=== PATIENT | female | born 1985 | race Caucasian/White ===

== ENCOUNTER 2017-12-29 18:19 | Emergency (ER) | payer SELFPAY ==
[2017-12-29 18:38] VITALS: TEMP 98.7
--- NOTE | 2017-12-29 18:48 | ED.PDOC ---
History of Present Illness - General Chief Complaint: ENT Problem Stated Complaint: sore throat Time Seen by Provider: 12/29/17 18:45 Source: patient, RN notes reviewed, Vital Signs reviewed Exam Limitations: no limitations - History of Present Illness Timing/Duration: gradual Severity: moderate EENT Location: mouth, throat Improving Factors: nothing Worsening Factors: nothing Associated Symptoms: sinus infection, sore throat Allergies/Adverse Reactions: Allergies Hydrocodone Adverse Reaction (Mild, Verified 12/29/17 18:39) itchy Home Medications: Ambulatory Orders Amoxicillin [Amoxil] 1,000 mg PO BID #40 cap 12/29/17 Ketorolac Tromethamine [Toradol Tabs] 10 mg PO Q6H PRN #20 tab 12/29/17 Review of Systems - Review of Systems Constitutional: States: fever EENTM: States: nose pain, throat pain Respiratory: States: no symptoms reported Cardiology: States: no symptoms reported Gastrointestinal/Abdominal: States: no symptoms reported Genitourinary: States: no symptoms reported Musculoskeletal: States: no symptoms reported Skin: States: no symptoms reported Neurological: States: no symptoms reported Endocrine: States: no symptoms reported Past Medical History (General) - Patient Medical History Hx Seizures: No Hx Stroke: No Hx Dementia: No Hx Asthma: No Hx of COPD: No Hx Cardiac Disorders: No Hx Congestive Heart Failure: No Hx Pacemaker: No Hx Hypertension: No Hx Thyroid Disease: No Hx Diabetes: No Hx Gastroesophageal Reflux: No Hx Renal Disease: No Hx of HIV: No Hx MRSA: No Surgical History: other - Vaccination History Hx Tetanus, Diphtheria Vaccination: Yes Hx Influenza Vaccination: No Hx Pneumococcal Vaccination: No - Social History Hx Tobacco Use: Yes Hx Alcohol Use: Yes - at least two bears a day - Triage Comment ED Triage Comment: Pt has mask on. Pt is having a hard time communicating d/t pain in throat Family Medical History - Family History Mother Hx Family Hypertension: Yes Hx Cardiac Disease: Yes Physical Exam - Physical Exam General Appearance: Alert, Well Developed, Well Groomed, Well Hydrated, Well Nourished Eye Exam: bilateral normal Ear Exam: bilateral ear: TM normal Nasal Exam: discharge, sinus tenderness Throat Exam: normal mouth inspection, pharynx tenderness, other - erythema Neck: non-tender, full range of motion, supple, lymphadenopathy (R), lymphadenopathy (L) Cardiovascular/Respiratory: regular rate, rhythm, no M/R/G, normal peripheral pulses, no JVD, normal breath sounds, no respiratory distress Abdominal Exam: non-tender, no organomegaly Neurologic: no motor/sensory deficits, alert Skin Exam: normal color, warm/dry Departure - Departure Clinical Impression: Streptococcal sore throat Time of Disposition: 18:45 Disposition: Discharge to Home or Self Care Condition: Good Departure Forms: ED Discharge - Pt. Copy, Patient Portal Self Enrollment Instructions: DI for Ear Pain-Adult Diet: full liquid diet Activity: increase activity as tolerated Prescriptions: Amoxicillin [Amoxil] 1,000 mg PO BID #40 cap Ketorolac Tromethamine [Toradol Tabs] 10 mg PO Q6H PRN #20 tab PRN Reason: Pain Home Medications: Ambulatory Orders Amoxicillin [Amoxil] 1,000 mg PO BID #40 cap 12/29/17 Ketorolac Tromethamine [Toradol Tabs] 10 mg PO Q6H PRN #20 tab 12/29/17
[2017-12-29] MEDS: LIDOCAINE HCL 2% (MOUTH-THROAT) 15 ML UD MT ONE (18:53)
[2017-12-29] MEDS: IBUPROFEN 200 MG TAB PO ONE (18:53)
[2017-12-29 19:13] VITALS: BP 129/85; O2SAT 98
== END 2017-12-29 19:05 | disposition home or self-care (01) ==
LOC: ER 18:19
DX: J02.0 Streptococcal pharyngitis (principal); Z88.5 Allergy status to narcotic agent; Z87.891 Personal history of nicotine dependence

== ENCOUNTER 2018-09-21 10:16 | Emergency (ER) | payer SELFPAY ==
--- NOTE | 2018-09-21 10:33 | ED.PDOC ---
History of Present Illness - General Chief Complaint: GI Problem Stated Complaint: nausea/vomiting Time Seen by Provider: 09/21/18 10:21 Information Source: patient Exam Limitations: no limitations - History of Present Illness Initial Comments: Becky Moise 33 y/o female came to ER with nausea/vomiting for the last 2 days about 15 times;no diarrhea but with soft stools yesterday;no fever/chills dysuria or hematemesis.Denies heavy alcohol consumption recently.No abdominal pains. Abdominal Pain Onset Location: other - NONE Pain Radiation: no radiation Quality: moderate Timing/Duration: days - 2 Improving Factors: nothing Worsening Factors: eating Associated Symptoms: denies symptoms, other - see hpi Review of Systems - Review of Systems Constitutional: States: no symptoms reported EENTM: States: no symptoms reported Respiratory: States: no symptoms reported Cardiology: States: no symptoms reported Gastrointestinal/Abdominal: States: see HPI, vomiting Genitourinary: States: no symptoms reported Musculoskeletal: States: no symptoms reported Skin: States: no symptoms reported All other Systems: Reviewed and Negative, No Change from Baseline Past Medical History (General) - Patient Medical History Hx Seizures: No Hx Stroke: No Hx Dementia: No Hx Asthma: No Hx of COPD: No Hx Cardiac Disorders: No Hx Congestive Heart Failure: No Hx Pacemaker: No Hx Hypertension: No Hx Thyroid Disease: No Hx Diabetes: No Hx Gastroesophageal Reflux: No Hx Renal Disease: No Hx of HIV: No Hx MRSA: No Surgical History: other - - Vaccination History Hx Tetanus, Diphtheria Vaccination: Yes Hx Influenza Vaccination: No Hx Pneumococcal Vaccination: No - Social History Hx Tobacco Use: Yes Hx Alcohol Use: Yes - Female History Patient is a Female of Child Bearing Age (10 -59 yrs old): Yes Patient : No Family Medical History - Family History Mother Hx Family Hypertension: Yes Hx Cardiac Disease: Yes Hx Family Cancer: Yes - mom/sister:ovarian Physical Exam - Physical Exam General Appearance: Alert, Comfortable, No apparent distress Eyes, Ears, Nose, Throat Exam: PERRL/EOMI, normal ENT inspection, pharynx normal Neck: non-tender, full range of motion, supple, normal inspection Respiratory: chest non-tender, lungs clear, normal breath sounds Cardiovascular/Chest: normal peripheral pulses, regular rate, rhythm, no murmur Peripheral Pulses: No deficit Gastrointestinal/Abdominal: normal bowel sounds, non tender, soft, no organomegaly Rectal Exam: normal exam Back Exam: normal inspection, no CVA tenderness, no vertebral tenderness Extremity: no pedal edema, no calf tenderness Neurologic: alert, oriented x 3 Skin Exam: normal color, warm/dry Progress - Progress Progress: 09/21/18 10:41 Vital Signs - 24 hr 09/21/18 10:23 Temperature 98.6 F Pulse Rate [ 62 Left Radial] Respiratory 18 Rate Blood Pressure 103/72 [Right Arm] O2 Sat by Pulse 98 Oximetry - Results/Orders Results/Orders: 09/21/18 10:34 IV Care:Saline Lock per Protoc QSHIFT Laboratory Results - last 24 hr 09/21/18 09/21/18 09/21/18 10:56 10:56 10:56 WBC 10.9 H RBC 5.17 Hgb 16.4 H Hct 48.8 H MCV 94.3 MCH 31.6 H MCHC 33.6 RDW 14.0 Plt Count 317 MPV 8.1 Absolute Neuts (auto) 8.50 H Absolute Lymphs (auto) 1.70 Absolute Monos (auto) 0.50 Absolute Eos (auto) 0.20 Absolute Basos (auto) 0.00 Neutrophils % 78.1 H Lymphocytes % 15.6 L Monocytes % 4.3 Eosinophils % 1.7 Basophils % 0.3 Sodium 139 Potassium 3.9 Chloride 100 L Carbon Dioxide 24 Anion Gap 18.9 H BUN 16 Creatinine 0.85 BUN/Creatinine Ratio 18.8 Random Glucose 71 Serum Osmolality 277.2 Calcium 9.7 Total Bilirubin 0.9 AST 25 ALT 15 Alkaline Phosphatase 50 Serum Total Protein 8.7 H Albumin 4.8 Globulin 3.9 H Albumin/Globulin Ratio 1.2 Lipase 22 Serum HCG, Qual Negative Urine Color Urine Appearance Urine pH Ur Specific [place] Urine Protein Urine Glucose (UA) Urine Ketones Urine Blood Urine Nitrite Urine Bilirubin Urine Urobilinogen Ur Leukocyte Esterase Urine RBC Urine WBC Ur Epithelial Cells Amorphous Sediment Urine Bacteria Urine Mucus 09/21/18 11:15 WBC RBC Hgb Hct MCV MCH MCHC RDW Plt Count MPV Absolute Neuts (auto) Absolute Lymphs (auto) Absolute Monos (auto) Absolute Eos (auto) Absolute Basos (auto) Neutrophils % Lymphocytes % Monocytes % Eosinophils % Basophils % Sodium Potassium Chloride Carbon Dioxide Anion Gap BUN Creatinine BUN/Creatinine Ratio Random Glucose Serum Osmolality Calcium Total Bilirubin AST ALT Alkaline Phosphatase Serum Total Protein Albumin Globulin Albumin/Globulin Ratio Lipase Serum HCG, Qual Urine Color Dk yellow H Urine Appearance Sl cloudy Urine pH 5.5 Ur Specific [place] >= 1.030 Urine Protein 30 Urine Glucose (UA) Negative Urine Ketones 80 H Urine Blood Negative Urine Nitrite Negative Urine Bilirubin Small H Urine Urobilinogen 0.2 Ur Leukocyte Esterase Negative Urine RBC 0-1 Urine WBC 0-1 Ur Epithelial Cells 20-30 Amorphous Sediment 1+ Urine Bacteria 1+ Urine Mucus Moderate Discuss all test result with patient - EKG/XRAY/CT XRAY: chest - and abdomen-no acute abnormalities noted Departure - Departure Clinical Impression: Nausea & vomiting Qualifiers: Vomiting type: unspecified Vomiting Intractability: non-intractable Qualified Code(s): R11.2 - Nausea with vomiting, unspecified Time of Disposition: 13:27 Disposition: Discharge to Home or Self Care Condition: Fair Departure Forms: ED Discharge - Pt. Copy, Patient Portal Self Enrollment Instructions: DI for Gastritis Diet: other - avoid greasy spicy foods until better Prescriptions: Ondansetron Odt [Zofran ODT] 8 mg PO Q8HRS PRN #7 tab PRN Reason: Nausea/Vomiting Home Medications: Ambulatory Orders Ondansetron Odt [Zofran ODT] 8 mg PO Q8HRS PRN #7 tab 09/21/18 Additional Instructions: Need to take over the counter medications B-complex vitamins one tablet daily;Magnesium oxide-400 mg daily;Ranitidine(Zantac)75 mg 2 tablets am/pm for 4 weeks;Return to Emergency room as needed
[2018-09-21] MEDS: LACTATED RINGERS 1,000 ML IVS ONE (11:12)
[2018-09-21] MEDS: PROCHLORPERAZINE INJ 10 MG/2 ML VIAL IV ONE (11:12)
--- NOTE | 2018-09-21 11:14 | RAD ---
1 radiographic chest. 3 Radiographs of the Abdomen. Indication: nausea/vomiting Comparison: None. Impression: Heart size normal. Lungs clear. No free air. Bowel gas pattern nonspecific. No abnormal calcifications. No acute osseous abnormality. Electronically signed by: Renard Almazan MD 09/21/2018 11:12 AM CDT
[2018-09-21 11:34] VITALS: O2SAT 99
[2018-09-21] MEDS ORDERED: raNITIdine HCL INJ 25 MG/ML VIAL ONE (11:37)
[2018-09-21] MEDS ORDERED: SODIUM CHLORIDE 0.9% 50ML 50 ML ONE (11:37)
[2018-09-21] MEDS: PANTOPRAZOLE INJECTION 80 MG in SODIUM CHLORIDE 0.9% 100ML 80 ML IVPB ONE (11:38)
[2018-09-21] MEDS: raNITIdine HCL INJ 50 MG in SODIUM CHLORIDE 0.9% 50ML 50 ML IVPB ONE (11:42)
[2018-09-21] MEDS ORDERED: SODIUM CHLORIDE 0.9% 500ML 500 ML IVS ONE (12:38)
[2018-09-21 14:16] VITALS: BP 95/53; TEMP 98
== END 2018-09-21 13:50 | disposition home or self-care (01) ==
LOC: ER 10:16
DX: R11.2 Nausea with vomiting, unspecified (principal); Z87.891 Personal history of nicotine dependence
CPT/HCPCS: 71045; 74019; 80053; 81001; 83690; 84703; 85025; A4216; J0780; J2780; J7120

== ENCOUNTER 2019-01-24 08:12 | Emergency (ER) | payer SELFPAY ==
[2019-01-24 08:23] VITALS: TEMP 98.1
[2019-01-24] MEDS ORDERED: ONDANSETRON ODT 8 MG TAB SL ONE (08:32)
[2019-01-24] MEDS ORDERED: SUCRALFATE 1 GM/10 ML 1 GM UD PO ONE (08:33)
[2019-01-24] MEDS ORDERED: ALUMINUM & MAGNESIUM HYDROXIDE 30 ML UD PO ONE (08:33)
[2019-01-24] MEDS ORDERED: PANTOPRAZOLE SODIUM TAB 40 MG PO ONE (08:33)
--- NOTE | 2019-01-24 09:29 | ED.PDOC ---
History of Present Illness - General Chief Complaint: GI Problem Stated Complaint: n/v/d Time Seen by Provider: 01/24/19 08:32 Source: patient Exam Limitations: no limitations - History of Present Illness Initial Comments: the patient is a 33-year-old female presenting to the emergency room secondary to nausea and vomiting and diarrhea for the last 48 hours. No blood and no bile. She has been tolerating liquids for the last 24 hours fairly well. No point abdominal pain. No fever. No urinary symptoms. No history of any pancreatitis. No history of any gallbladder or appendix issues in the past. There are multiple members in the community with similar symptoms. The patient does have a mild cough. She is a long-term smoker. No definite history of asthma. Timing/Duration: other - 2-3 days Severity: moderate Improving Factors: nothing Worsening Factors: eating Associated Symptoms: loss of appetite, malaise, nausea/vomiting Allergies/Adverse Reactions: Allergies Hydrocodone Adverse Reaction (Mild, Verified 09/21/18 10:34) Causes itching Home Medications: Ambulatory Orders Albuterol Inhaler [Ventolin Hfa Inhaler] 2 puff INH Q4H PRN #1 inh 01/24/19 Azithromycin 500 mg PO DAILY #4 tab 01/24/19 NK 01/24/19 Ondansetron Odt [Zofran ODT] 4 mg PO Q8HR PRN #5 tab 01/24/19 Sucralfate Tab [Carafate Tab] 1 gm PO QID #30 tab 01/24/19 Review of Systems - Review of Systems Constitutional: States: malaise EENTM: States: no symptoms reported Respiratory: States: cough Cardiology: States: no symptoms reported Gastrointestinal/Abdominal: States: no symptoms reported, diarrhea, nausea, vomiting Genitourinary: States: no symptoms reported Musculoskeletal: States: no symptoms reported Skin: States: no symptoms reported Neurological: States: no symptoms reported Endocrine: States: no symptoms reported All other Systems: No Change from Baseline Past Medical History (General) - Patient Medical History Hx Seizures: No Hx Stroke: No Hx Dementia: No Hx Asthma: No Hx of COPD: No Hx Cardiac Disorders: No Hx Congestive Heart Failure: No Hx Pacemaker: No Hx Hypertension: No Hx Thyroid Disease: No Hx Diabetes: No Hx Gastroesophageal Reflux: No Hx Renal Disease: No Hx of HIV: No Hx MRSA: No Surgical History: other - Vaccination History Hx Tetanus, Diphtheria Vaccination: Yes Hx Influenza Vaccination: No Hx Pneumococcal Vaccination: No - Social History Hx Tobacco Use: Yes Hx Alcohol Use: Yes - Female History Patient : No Family Medical History - Family History Mother Family History: No Known Hx Family Hypertension: Yes Hx Cardiac Disease: Yes Hx Family Cancer: Yes - mom/sister:ovarian Physical Exam - Physical Exam General Appearance: Alert, Comfortable, No apparent distress Eye Exam: bilateral normal Ears, Nose, Throat: hearing grossly normal, normal ENT inspection Neck: full range of motion, supple Respiratory: no respiratory distress, no accessory muscle use, rhonchi, wheezing Cardiovascular/Chest: normal peripheral pulses, regular rate, rhythm, no edema Peripheral Pulses: radial,right: 2+, radial,left: 2+ Gastrointestinal/Abdominal: non tender, soft Rectal Exam: deferred Back Exam: no CVA tenderness, no vertebral tenderness Extremity: non-tender, normal inspection, no pedal edema, normal capillary refill Neurologic: learning design specialist II-XII nml as tested, alert, normal mood/affect, oriented x 3 Skin Exam: normal color Comments: Vital Signs - 24 hr 01/24/19 01/24/19 08:20 09:00 Temperature 98.1 F Pulse Rate [ 74 58 L left brachial] Respiratory 16 20 Rate Blood Pressure 101/69 101/57 [left brachial] O2 Sat by Pulse 99 97 Oximetry Progress - Progress Progress: 01/24/19 09:30 the patient is a 33-year-old female presenting to the emergency room secondary to 2 days of nausea and vomiting and diarrhea. There is no definite point abdominal pain. This appears to be a gastroenteritis. She appears to have mild dehydration. She has tolerated stomach medications well and is tolerating liquids currently. She needs to maintain a bland diet for the next 3 days and increase water intake. She'll be written for Zofran for as needed use to control any nausea or vomiting. She'll be written for Carafate to take for the next week to help reduce any gastritis issues. She'll also be written for azithromycin to take for 5 days for the bronchitis that she appears to have going on. I'm uncertain if this is an acute bronchitis or if this is long- standing due to smoking. This antibiotic should also cover for a bacterial gastroenteritis if this is indeed not viral. I'm also going to write her for an albuterol inhaler to use on a trial basis for any shortness of breath that she might have. She does have some scattered wheezes and may have a mild reactive airway component. She needs to follow back up with her primary care doctor early next week. ER warnings were given for any worsening or failure to improve. If she did worsen, then additional workup and treatment would certainly be warranted. pina moy [id number] - Results/Orders Results/Orders: Laboratory Tests 01/24/19 01/24/19 08:30 08:30 Urine Color Yellow Urine Appearance Sl cloudy Urine pH 5.5 Ur Specific [place] >= 1.030 Urine Protein Trace Urine Glucose (UA) Negative Urine Ketones Negative Urine Blood Negative Urine Nitrite Negative Urine Bilirubin Negative Urine Urobilinogen 0.2 Ur Leukocyte Esterase Negative Urine RBC 0-1 Urine WBC 0-1 Ur Epithelial Cells 5-10 Urine Bacteria 1+ Urine Mucus Small Urine HCG, Qual Negative Departure - Departure Clinical Impression: Bronchitis, Gastroenteritis Disposition: Discharge to Home or Self Care Condition: Fair Departure Forms: ED Discharge - Pt. Copy, Patient Portal Self Enrollment Instructions: DI for Diarrhea and Traveler's Diarrhea -- Adult, Acute Bronchitis Diet: bland diet Activity: increase activity as tolerated Prescriptions: Ondansetron Odt [Zofran ODT] 4 mg PO Q8HR PRN #5 tab PRN Reason: Nausea--Moderate Albuterol Inhaler [Ventolin Hfa Inhaler] 2 puff INH Q4H PRN #1 inh PRN Reason: Shortness Of Breath Azithromycin 500 mg PO DAILY #4 tab Sucralfate Tab [Carafate Tab] 1 gm PO QID #30 tab Home Medications: Ambulatory Orders Albuterol Inhaler [Ventolin Hfa Inhaler] 2 puff INH Q4H PRN #1 inh 01/24/19 Azithromycin 500 mg PO DAILY #4 tab 01/24/19 NK 01/24/19 Ondansetron Odt [Zofran ODT] 4 mg PO Q8HR PRN #5 tab 01/24/19 Sucralfate Tab [Carafate Tab] 1 gm PO QID #30 tab 01/24/19 Additional Instructions: the patient is a 33-year-old female presenting to the emergency room secondary to 2 days of nausea and vomiting and diarrhea. There is no definite point abdominal pain. This appears to be a gastroenteritis. She appears to have mild dehydration. She has tolerated stomach medications well and is tolerating liquids currently. She needs to maintain a bland diet for the next 3 days and increase water intake. She'll be written for Zofran for as needed use to control any nausea or vomiting. She'll be written for Carafate to take for the next week to help reduce any gastritis issues. She'll also be written for azithromycin to take for 5 days for the bronchitis that she appears to have going on. I'm uncertain if this is an acute bronchitis or if this is long- standing due to smoking. This antibiotic should also cover for a bacterial gastroenteritis if this is indeed not viral. I'm also going to write her for an albuterol inhaler to use on a trial basis for any shortness of breath that she might have. She does have some scattered wheezes and may have a mild reactive airway component. She needs to follow back up with her primary care doctor early next week. ER warnings were given for any worsening or failure to improve. If she did worsen, then additional workup and treatment would certainly be warranted.
[2019-01-24] MEDS ORDERED: AZITHROMYCIN 250 MG TAB PO ONE (09:34)
[2019-01-24 10:13] VITALS: BP 95/60; O2SAT 99
== END 2019-01-24 10:00 | disposition home or self-care (01) ==
LOC: ER 08:12
DX: K52.9 Noninfective gastroenteritis and colitis, unspecified (principal); J40 Bronchitis, not specified as acute or chronic; F17.200 Nicotine dependence, unspecified, uncomplicated; Z88.5 Allergy status to narcotic agent
CPT/HCPCS: 81001; 81025; Q0144

== ENCOUNTER 2019-02-02 07:32 | Emergency (ER) | payer SELFPAY ==
[2019-02-02 07:59] VITALS: TEMP 98.1; O2SAT 99
[2019-02-02] MEDS ORDERED: KETOROLAC TROMETHAMINE INJ 30 MG/ML VIAL IM ONE (08:03)
--- NOTE | 2019-02-02 08:07 | ED.PDOC ---
History of Present Illness - General Chief Complaint: Upper Extremity Injury Stated Complaint: right elbow pain after falling out of bed Time Seen by Provider: 02/02/19 08:03 Source: patient - History of Present Illness Initial Comments: 33 yo female who presents with cc of right elbow pain following injury at 1 am today at home. Reports she accidentally rolled out of right side of bed and struck the back side of the right elbow against the dresser. Reports constant, 10/10, sharp pain to back of right elbow which radiates down the forearm, worse with extension and flexion past 90 degrees, worse with pronation/supination, worse with palpation, no swelling/redness/deformity, no meds tried for relief. Reports hx of right elbow dislocation in 2016. Allergies/Adverse Reactions: Allergies Hydrocodone Adverse Reaction (Mild, Verified 02/02/19 07:59) Causes itching Home Medications: Ambulatory Orders NK 01/24/19 Review of Systems - Review of Systems Review of Systems: 02/02/19 08:06 As per HPI. All others negative. Past Medical History (General) - Patient Medical History Hx Seizures: No Hx Stroke: No Hx Dementia: No Hx Asthma: No Hx of COPD: No Hx Cardiac Disorders: No Hx Congestive Heart Failure: No Hx Pacemaker: No Hx Hypertension: No Hx Thyroid Disease: No Hx Diabetes: No Hx Gastroesophageal Reflux: No Hx Renal Disease: No Hx Cancer: No Hx of HIV: No Hx Hepatitis C: No Hx MRSA: No - Vaccination History Hx Tetanus, Diphtheria Vaccination: No Hx Influenza Vaccination: No Hx Pneumococcal Vaccination: No Immunizations Up to Date: No - Social History Hx Tobacco Use: Yes Hx Alcohol Use: No Hx Substance Use: No Hx Substance Use Treatment: No Hx Depression: No - Female History Patient is a Female of Child Bearing Age (10 -59 yrs old): Yes Patient : No Family Medical History - Family History Mother Family History: No Known Hx Family Hypertension: Yes Hx Cardiac Disease: Yes Hx Family Cancer: Yes - mom/sister:ovarian Physical Exam - Physical Exam General Appearance: Alert, Comfortable, No apparent distress Eyes, Ears, Nose, Throat Exam: PERRL/EOMI, normal ENT inspection Neck: non-tender, full range of motion, supple, normal inspection Cardiovascular/Respiratory: regular rate, rhythm, no M/R/G, normal peripheral pulses, no JVD Abdominal Exam: non-tender, no organomegaly Back Exam: normal inspection, no CVA tenderness, no vertebral tenderness Shoulder Exam: normal inspection, non-tender, no evidence of injury, normal ROM Elbow/Forearm Exam: normal inspection, bone tenderness - posterior and lateral, limited ROM - Limited to between 15 to 90 degrees flexion, pain Wrist Exam: normal inspection, non-tender, no evidence of injury, normal ROM Hand Exam: normal inspection, non-tender Neuro/Tendon: normal sensation, normal motor functions Mental Status: alert, oriented x 3 Skin Exam: normal color, warm/dry Progress - Progress Progress: 02/02/19 08:09 Right elbow pain -consider fracture vs contusion most likely. Consider also strain/sprain vs dislocation vs other. -obtain XR R elbow, apply cold pack, Toradol 30 mg IM for pain control 02/02/19 08:38 -XR R elbow shows no acute fractures. Pt reports pain and ROM much improved following trx. Will place in sling for comfort, advised continued immobilization if pain and poor ROM continues and repeat XR in 5-7 days. If pain and ROM markedly improves over next few days, may dc sling and resume normal activity as tolerated. -dc home in good condition, home treatment discussed. Gaurav Booth MD Billing #[id number] - EKG/XRAY/CT XRAY: elbow - Right Xray Comments: no acute fractures Departure - Departure Clinical Impression: Contusion of elbow, right Qualifiers: Encounter type: initial encounter Qualified Code(s): S50.01XA - Contusion of right elbow, initial encounter Time of Disposition: 08:40 Disposition: Discharge to Home or Self Care Condition: Good Departure Forms: ED Discharge - Pt. Copy, Patient Portal Self Enrollment Instructions: DI for Elbow Pain Activity: no lifting, no pushing/pulling with affected limb Home Medications: Ambulatory Orders NK 01/24/19
--- NOTE | 2019-02-02 08:34 | RAD ---
EXAM DESCRIPTION: Elbow,Right 3 Views CLINICAL HISTORY: 33 years Female, acute right posterior elbow pain COMPARISON: None available. FINDINGS: The visualized bones are well-mineralized.No acute fracture or dislocation. The soft tissues appear grossly unremarkable. IMPRESSION: Normal radiographs of the right elbow. Electronically signed by: Henny Pa MD 02/02/2019 8:33 AM CDT
[2019-02-02 09:34] VITALS: BP 114/72
== END 2019-02-02 09:20 | disposition home or self-care (01) ==
LOC: ER 07:32
DX: S50.01XA Contusion of right elbow, initial encounter (principal); Z87.891 Personal history of nicotine dependence; Z88.8 Allergy status to other drugs, medicaments and biological substances; W06.XXXA Fall from bed, initial encounter; Y92.003 Bedroom of unspecified non-institutional (private) residence as the place of occurrence of the external cause
CPT/HCPCS: 73080; 96372; 99284; J1885

== ENCOUNTER 2019-04-29 09:37 | Emergency (ER) | payer SELFPAY ==
[2019-04-29 09:55] VITALS: TEMP 97.1
[2019-04-29] MEDS ORDERED: TETANUS,DIPHTHERIA,PERTUSSIS 1 EA SYG IM ONE (10:03)
--- NOTE | 2019-04-29 10:05 | ED.PDOC ---
History of Present Illness - General Chief Complaint: Laceration Stated Complaint: Laceration to forehead Time Seen by Provider: 04/29/19 09:49 Source: patient - History of Present Illness Initial Comments: 33 yo female who is bib EMS from home for cc of forehead laceration following injury at home approx 1 hour ago. Reports she tripped on the hem of her jeans while walking outside to smoke a cigarette and fell forward striking her forehead against the door. Denies any LOC. Reports vertical laceration wound to middle/upper forehead and moderate amount of bleeding. She was concerned that the wound may be very deep so she called EMS. Reports sharp severe pain initially but now only 2/10 severity, no radiation, no meds taken for relief. Last tet imm was 2002. Denies any other injuries, confusion, n/v, etc... Allergies/Adverse Reactions: Allergies Hydrocodone Adverse Reaction (Mild, Verified 04/29/19 09:49) Causes itching Home Medications: Ambulatory Orders NK 01/24/19 Review of Systems - Review of Systems Review of Systems: 04/29/19 10:08 as per HPI All other Systems: Reviewed and Negative Past Medical History (General) - Patient Medical History Hx Seizures: No Hx Stroke: No Hx Dementia: No Hx Asthma: No Hx of COPD: No Hx Cardiac Disorders: No Hx Congestive Heart Failure: No Hx Pacemaker: No Hx Hypertension: No Hx Thyroid Disease: No Hx Diabetes: No Hx Gastroesophageal Reflux: No Hx Renal Disease: No Hx Cancer: No Hx of HIV: No Hx Hepatitis C: No Hx MRSA: No Surgical History: other - Vaccination History Hx Tetanus, Diphtheria Vaccination: No Hx Influenza Vaccination: No Hx Pneumococcal Vaccination: No - Social History Hx Tobacco Use: Yes Hx Alcohol Use: Yes - Social use Hx Substance Use: No Hx Substance Use Treatment: No Hx Depression: No - Female History Patient is a Female of Child Bearing Age (10 -59 yrs old): Yes Patient : No Family Medical History - Family History Mother Family History: No Known Hx Family Hypertension: Yes Hx Cardiac Disease: Yes Hx Family Cancer: Yes - mom/sister:ovarian Physical Exam - Physical Exam General Appearance: Alert, Comfortable, No apparent distress Eye Exam: bilateral normal Ears, Nose, Throat: hearing grossly normal, normal ENT inspection, normal pharynx Neck: non-tender, full range of motion, supple, normal inspection Respiratory: chest non-tender, lungs clear, normal breath sounds, no respiratory distress, no accessory muscle use Cardiovascular/Chest: normal peripheral pulses, regular rate, rhythm, no edema, no murmur Peripheral Pulses: radial,right: 2+, radial,left: 2+ Gastrointestinal/Abdominal: non tender, soft, no organomegaly Back Exam: normal inspection, no CVA tenderness, no vertebral tenderness Extremity: normal range of motion, non-tender, normal inspection, no pedal edema Neurologic: general manager II-XII nml as tested, no motor/sensory deficits, alert, normal mood/affect, oriented x 3 Skin Exam: normal color, warm/dry, other - approx 2.5 cm superficial clean hemostatic linear laceration to upper/middle forehead Progress - Progress Progress: 04/29/19 10:09 Forehead laceration -cleansed copiously with Hibiclens and repaired with Dermabond in ED without issue -advised of return warnings at length, dc home in good condition -tetanus booster given Gaurav Booth MD Billing #[id number] Procedures - Laceration/Wound Repair Anterior Head Wound Length (cm): 2.5 Wound's Depth, Shape: superficial, linear Wound Explored: clean Betadine Prep?: No - Hibiclens Wound Repaired With: dermabond Layer Closure?: No Departure - Departure Clinical Impression: Laceration of forehead without complication Qualifiers: Encounter type: initial encounter Qualified Code(s): S01.81XA - Laceration without foreign body of other part of head, initial encounter Time of Disposition: 10:03 Disposition: Discharge to Home or Self Care Condition: Good Departure Forms: ED Discharge - Pt. Copy, Patient Portal Self Enrollment Instructions: DI for Laceration Repair With Dermabond Diet: resume usual diet Activity: increase activity as tolerated Home Medications: Ambulatory Orders NK 01/24/19 Additional Instructions: Continue OTC meds as needed such as ibuprofen/Tylenol for headache/pain. Return if concerning symptoms develop such as rapidly worsening or severe headache, confusion, loss of consciousness, redness/swelling/pus drainage from wound, etc... Follow up with your primary care doctor in 1-2 weeks or sooner as needed.
[2019-04-29 10:39] VITALS: BP 101/74; O2SAT 98
== END 2019-04-29 10:29 | disposition home or self-care (01) ==
LOC: ER 09:37
DX: S01.81XA Laceration without foreign body of other part of head, initial encounter (principal); F17.210 Nicotine dependence, cigarettes, uncomplicated; W01.198A Fall on same level from slipping, tripping and stumbling with subsequent striking against other object, initial encounter; Z88.5 Allergy status to narcotic agent; Y92.9 Unspecified place or not applicable

== ENCOUNTER 2019-07-19 11:52 | Emergency (ER) | payer SELFPAY ==
--- NOTE | 2019-07-19 12:03 | ED.PDOC ---
History of Present Illness - General Time Seen by Provider: 07/19/19 12:00 Source: patient Exam Limitations: no limitations Additional Information: 34 y/o sustained cruch type injury to R hand involving thenar eminence. ahe is able to flex and extend at IP but pain with movement at MCP - History of Present Illness Occurred: just prior to arrival Pain - Upper Extremity: moderate: Hand, right Method of Injury: other - slammed between door and wall corner/ledge Worsening Factors: movement Allergies/Adverse Reactions: Allergies Hydrocodone Adverse Reaction (Mild, Verified 04/29/19 09:49) Causes itching Home Medications: Ambulatory Orders Tramadol HCl [Tramadol Hydrochloride] 50 mg PO Q4HR PRN #20 tab 07/19/19 Review of Systems - Review of Systems Constitutional: States: no symptoms reported Musculoskeletal: States: joint pain, joint swelling, muscle pain - R hand at thumb Skin: Denies: change in color - no open skin Neurological: Denies: numbness Past Medical History (General) - Patient Medical History Hx Seizures: No Hx Stroke: No Hx Dementia: No Hx Asthma: No Hx of COPD: Yes - "chronic bronchitis" reportedly diagnosed at age 21 Hx Cardiac Disorders: No Hx Congestive Heart Failure: No Hx Pacemaker: No Hx Hypertension: No Hx Thyroid Disease: No Hx Diabetes: No Hx Gastroesophageal Reflux: No Hx Renal Disease: No Hx Cancer: No Hx of HIV: No Hx Hepatitis C: No Hx MRSA: No - Vaccination History Hx Tetanus, Diphtheria Vaccination: No Hx Influenza Vaccination: No Hx Pneumococcal Vaccination: No - Social History Hx Tobacco Use: Yes Hx Alcohol Use: Yes - Social use Hx Substance Use: No Hx Substance Use Treatment: No Hx Depression: No - Female History Patient : No Family Medical History - Family History Mother Family History: No Known Hx Family Hypertension: Yes Hx Cardiac Disease: Yes Hx Family Cancer: Yes - mom/sister:ovarian Physical Exam - Physical Exam General Appearance: Anxious Neck: full range of motion, supple Hand Exam: swelling - tender swollen thenar eminence R hand, no open skin. able to flex and at thumb IP but pain with movement of MCP Neuro/Tendon: no evidence tendon injury Mental Status: alert, oriented x 3 Skin Exam: normal color Progress - Progress Progress: 07/19/19 12:59 R hand Xray: neg for fracture 07/19/19 13:05 ordered thumb spica splint. discussed diagnosis with patient Departure - Departure Clinical Impression: Contusion of hand Qualifiers: Encounter type: initial encounter Laterality: right Qualified Code(s): S60.221A - Contusion of right hand, initial encounter Time of Disposition: 13:07 Disposition: Discharge to Home or Self Care Condition: Good Instructions: DI for Hand Pain Prescriptions: Tramadol HCl [Tramadol Hydrochloride] 50 mg PO Q4HR PRN #20 tab PRN Reason: Pain -- Mild To Moderate Home Medications: Ambulatory Orders Tramadol HCl [Tramadol Hydrochloride] 50 mg PO Q4HR PRN #20 tab 07/19/19
[2019-07-19 12:11] VITALS: TEMP 98.3
--- NOTE | 2019-07-19 12:29 | RAD ---
EXAM DESCRIPTION: Hand,Right 2 Views CLINICAL HISTORY: injury COMPARISON: None Available. TECHNIQUE: AP and lateral FINDINGS: The visualized bones appear well mineralized. No acute fracture or dislocation. The soft tissues appear grossly unremarkable. IMPRESSION: No acute traumatic abnormality of the right hand. Electronically signed by: Henny Pa MD 07/19/2019 12:28 PM CDT
[2019-07-19 14:05] VITALS: BP 111/73; O2SAT 96
== END 2019-07-19 13:40 | disposition home or self-care (01) ==
LOC: ER 11:52
DX: S60.221A Contusion of right hand, initial encounter (principal); W23.0XXA Caught, crushed, jammed, or pinched between moving objects, initial encounter; Y92.9 Unspecified place or not applicable; F17.210 Nicotine dependence, cigarettes, uncomplicated

== ENCOUNTER 2019-09-09 10:54 | Emergency (ER) | payer SELFPAY ==
--- NOTE | 2019-09-09 12:15 | RAD ---
EXAM: XR Right Elbow Complete, 3 or More Views CLINICAL HISTORY: fall with pain since last night, prev disloc hx TECHNIQUE: Frontal, lateral and oblique views of the right elbow. COMPARISON: No relevant prior studies available. FINDINGS: Bones/joints: Unremarkable. No acute fracture. No dislocation. Soft tissues: Unremarkable. IMPRESSION: No abnormality noted. Electronically signed by: Shawna Perez MD 09/09/2019 12:14 PM CDT
--- NOTE | 2019-09-09 12:25 | ED.PDOC ---
History of Present Illness - General Chief Complaint: General Stated Complaint: Elbow pain Time Seen by Provider: 09/09/19 10:58 Source: patient Exam Limitations: no limitations - History of Present Illness Initial Comments: The patient is a 34-year-old female presented emergency room secondary to right elbow pain.The patient slipped and fell in the bathroom last night and hit her right elbow on the toilet and has since had some difficulty with moving it. She apparently has dislocated the elbow in the past, approximately 3 years ago. She does not think that she has had a fracture before. She has mild tingling in the fingers no loss of sensation and no obvious loss of strength. Passive range of motion is mildly limited in the extremes passively and actively . Primarily limited due to pain. No other injury. No laceration. No palpable bony deformity but the elbow is tender. Timing/Duration: other - 16 hours Severity: moderate Improving Factors: immobilization Worsening Factors: movement Associated Symptoms: denies symptoms Allergies/Adverse Reactions: Allergies Hydrocodone Adverse Reaction (Mild, Verified 04/29/19 09:49) Causes itching Review of Systems - Review of Systems Constitutional: States: no symptoms reported EENTM: States: no symptoms reported Respiratory: States: no symptoms reported Cardiology: States: no symptoms reported Gastrointestinal/Abdominal: States: no symptoms reported Genitourinary: States: no symptoms reported Musculoskeletal: States: see HPI Skin: States: no symptoms reported Neurological: States: see HPI Endocrine: States: no symptoms reported All other Systems: No Change from Baseline Past Medical History (General) - Patient Medical History Hx Seizures: No Hx Stroke: No Hx Dementia: No Hx Asthma: No Hx of COPD: Yes - "chronic bronchitis" reportedly diagnosed at age 21 Hx Cardiac Disorders: No Hx Congestive Heart Failure: No Hx Pacemaker: No Hx Hypertension: No Hx Thyroid Disease: No Hx Diabetes: Yes Hx Gastroesophageal Reflux: No Hx Renal Disease: No Hx Cancer: No Hx of HIV: No Hx Hepatitis C: No Hx MRSA: No Surgical History: other - Vaccination History Hx Tetanus, Diphtheria Vaccination: No Hx Influenza Vaccination: No Hx Pneumococcal Vaccination: No - Social History Hx Tobacco Use: Yes Hx Alcohol Use: Yes Hx Substance Use: No Hx Substance Use Treatment: No Hx Depression: No - Female History Patient : No Family Medical History - Family History Mother Family History: No Known Hx Family Hypertension: Yes Hx Cardiac Disease: Yes Hx Family Cancer: Yes - mom/sister:ovarian Physical Exam - Physical Exam General Appearance: Agitated, Alert, Comfortable, No apparent distress Eye Exam: bilateral normal Ears, Nose, Throat: hearing grossly normal, normal pharynx Neck: full range of motion Respiratory: no respiratory distress, no accessory muscle use Cardiovascular/Chest: normal peripheral pulses, no edema Peripheral Pulses: radial,right: 2+, radial,left: 2+ Rectal Exam: deferred Extremity: no pedal edema, normal capillary refill, other - See history of present illness Neurologic: performance specialist II-XII nml as tested, alert, normal mood/affect, oriented x 3 Skin Exam: normal color Comments: Vital Signs (72 hours) 09/09/19 11:14 Temperature 97.7 F Respiratory 20 Rate Blood Pressure 120/87 [Left Arm] O2 Sat by Pulse 99 Oximetry Progress - Progress Progress: 09/09/19 12:25 The patient is a 34-year-old female presented emergency room secondary to blunt trauma to the right elbow last night. X-ray shows no evidence of any fracture or current dislocation. The patient does need to do passive range of motion exercises. Motrin or Aleve may prove beneficial for discomfort. She will likely have some pain for the next 3 to 5 weeks. If the elbow is exhibiting some instability with use after a couple of weeks then an evaluation with orthopedics may be in order. ER warnings are given. pina moy [id number] - Results/Orders Results/Orders: X-ray of the right elbow shows no evidence of dislocation or fracture. - EKG/XRAY/CT CT Ordered: No Departure - Departure Clinical Impression: Sprain of elbow, right Qualifiers: Encounter type: initial encounter Qualified Code(s): S53.401A - Unspecified sprain of right elbow, initial encounter Disposition: Discharge to Home or Self Care Condition: Fair Departure Forms: ED Discharge - Pt. Copy, Patient Portal Self Enrollment Instructions: Elbow Sprain (DC) Diet: regular diet Activity: no exercise Additional Instructions: The patient is a 34-year-old female presented emergency room secondary to blunt trauma to the right elbow last night. X-ray shows no evidence of any fracture or current dislocation. The patient does need to do passive range of motion exercises. Motrin or Aleve may prove beneficial for discomfort. She will likely have some pain for the next 3 to 5 weeks. If the elbow is exhibiting some instability with use after a couple of weeks then an evaluation with orthopedics may be in order. ER warnings are given.
[2019-09-09 12:47] VITALS: BP 102/79; TEMP 97.5; O2SAT 100
== END 2019-09-09 12:40 | disposition home or self-care (01) ==
LOC: ER 10:54 → EDSTATUS 10:55 → ER 12:40
DX: S53.401A Unspecified sprain of right elbow, initial encounter (principal); E11.9 Type 2 diabetes mellitus without complications; F17.200 Nicotine dependence, unspecified, uncomplicated; W18.00XA Striking against unspecified object with subsequent fall, initial encounter; Y92.9 Unspecified place or not applicable

== ENCOUNTER 2019-10-04 09:01 | Emergency (ER) | payer SELFPAY ==
[2019-10-04] MEDS ORDERED: SODIUM CHLORIDE 0.9% 1000ML 1,000 ML IVS ONE (09:36)
[2019-10-04] MEDS ORDERED: ONDANSETRON INJ 4 MG/2 ML VIAL IV ONE (09:36)
--- NOTE | 2019-10-04 09:39 | ED.PDOC ---
History of Present Illness - General Chief Complaint: Respiratory Problem Stated Complaint: Cough Time Seen by Provider: 10/04/19 09:33 Source: patient, Vital Signs reviewed, EMS notes reviewed Exam Limitations: no limitations - History of Present Illness Comments: The patient is a 34 year old with history of chronic bronchitis who presents to the ED for cough/uri symptoms. She says since yesterday evening she has had dry cough, shortness of breath, body aches/chills and vomiting. Rose had difficult time keeping food and water down. She denies any recent travel or known sick contacts. No abdominal pain or diarrhea. No dysuria, vaginal bleeding or discharge. No other complaints at this time. Allergies/Adverse Reactions: Allergies Hydrocodone Adverse Reaction (Mild, Verified 04/29/19 09:49) Causes itching Home Medications: Ambulatory Orders Ondansetron HCl [Zofran] 4 mg PO Q6HRS PRN #15 tab 10/04/19 Review of Systems - Review of Systems Constitutional: States: chills, malaise EENTM: States: nose congestion Respiratory: States: cough, short of breath Cardiology: Denies: chest pain, palpitations Gastrointestinal/Abdominal: States: nausea, vomiting. Denies: abdominal pain, diarrhea Genitourinary: Denies: discharge, dysuria, frequency Musculoskeletal: States: muscle pain, muscle stiffness Skin: States: no symptoms reported Neurological: States: no symptoms reported Endocrine: States: no symptoms reported Hematologic/Lymphatic: States: no symptoms reported All other Systems: Reviewed and Negative Past Medical History (General) - Patient Medical History Hx Seizures: No Hx Stroke: No Hx Dementia: No Hx Asthma: No Hx of COPD: Yes - "chronic bronchitis" reportedly diagnosed at age 21 Hx Cardiac Disorders: No Hx Congestive Heart Failure: No Hx Pacemaker: No Hx Hypertension: No Hx Thyroid Disease: No Hx Diabetes: Yes Hx Gastroesophageal Reflux: No Hx Renal Disease: No Hx Cancer: No Hx of HIV: No Hx Hepatitis C: No Hx MRSA: No - Vaccination History Hx Tetanus, Diphtheria Vaccination: No Hx Influenza Vaccination: No Hx Pneumococcal Vaccination: No - Social History Hx Tobacco Use: Yes Hx Alcohol Use: Yes Hx Substance Use: No Hx Substance Use Treatment: No Hx Depression: No - Female History Patient : No Family Medical History - Family History Mother Family History: No Known Hx Family Hypertension: Yes Hx Cardiac Disease: Yes Hx Family Cancer: Yes - mom/sister:ovarian Physical Exam - Physical Exam General Appearance: No apparent distress, Ill Appearing ENT Exam: hearing grossly normal Neck: normal inspection Respiratory: no respiratory distress, no accessory muscle use Cardiovascular/Chest: regular rate, rhythm Gastrointestinal/Abdominal: non tender, soft Extremity: normal range of motion, normal inspection Neurologic: no motor/sensory deficits, alert, oriented x 3 Skin Exam: normal color Progress - Progress Progress: 10/04/19 09:39 Patient presents with COVID-19 symptoms, will screen. CXR, labs, IVF and anti- emetics, reassess. No hypoxia or increased work of breathing. Abdominal exam not concerning for acute surgical abdomen. 10/04/19 10:56 Patient reassessed, workup as above. She is feeling better after IVF and hydration. No vomiting in ED. Ddx includes food poisoning vs. viral syndrome vs. COVID-19 vs other. Advised self quarantine pending COVID results, continue outpatient symptomatic management with ibuprofen and tylenol. Zofran and oral hydration. She will follow up with her PCP. - EKG/XRAY/CT Xray Comments: COPD, no acute infiltrate Departure - Departure Clinical Impression: Nausea and vomiting, Suspected COVID-19 virus infection Upper respiratory infection Qualifiers: URI type: unspecified viral URI Qualified Code(s): J06.9 - Acute upper respiratory infection, unspecified Time of Disposition: 10:58 Disposition: Discharge to Home or Self Care Condition: Fair Departure Forms: ED Discharge - Pt. Copy, Patient Portal Self Enrollment Instructions: Coronavirus Disease 2019 (COVID-19), Nausea and Vomiting, Adult (DC) Diet: bland diet Activity: increase activity as tolerated Prescriptions: Ondansetron HCl [Zofran] 4 mg PO Q6HRS PRN #15 tab PRN Reason: Nausea Home Medications: Ambulatory Orders Ondansetron HCl [Zofran] 4 mg PO Q6HRS PRN #15 tab 10/04/19 Additional Instructions: Continue isolation until COVID test results. Follow up with your primary care provider in 1-2 weeks, return to the ED for any persistent or worsening symptoms.
--- NOTE | 2019-10-04 11:17 | RAD ---
EXAM DESCRIPTION: Chest,1 View CLINICAL HISTORY: 34 years Female, cough, fever COMPARISON: June 27, 2019 FINDINGS: One view/radiograph Heart size and pulmonary vessels are within normal limits. There is no pneumothorax or pleural effusion. The lungs are clear bilaterally. The soft tissues are unremarkable. No acute osseous findings. IMPRESSION: No acute cardiopulmonary abnormality. Electronically signed by: Rohith Hull MD 10/04/2019 11:16 AM CDT
[2019-10-04 11:48] VITALS: BP 101/69; TEMP 98.8; O2SAT 97
== END 2019-10-04 11:20 | disposition home or self-care (01) ==
LOC: ER 09:01
DX: R11.2 Nausea with vomiting, unspecified (principal); J06.9 Acute upper respiratory infection, unspecified; E11.9 Type 2 diabetes mellitus without complications; F17.200 Nicotine dependence, unspecified, uncomplicated
CPT/HCPCS: 71045; 80053; 83690; 84703; 85025; 87635; J2405; J7030